=== PATIENT | female | born 1995 | race Two or more races ===

== ENCOUNTER 2024-03-09 11:54 | Outpatient (AMB) | payer OTHER, SELFPAY ==
--- NOTE | 2024-03-09 12:02 | A.OFFPC_ITS ---
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 Retail Loan Officer Required: No Accompanied by: Self / Same As Patient Allergies NSAIDS (Non-Steroidal Anti-Inflamma Allergy (Severe, Verified 03/09/24 12:28) Swelling dipyrone Adverse Reaction (Intermediate, Verified 03/09/24 12:28) Hives Medication List - Last Reconciled 03/09/24 by Kellen Cooper, [facility]- drospirenone-ethinyl estradiol 3-0.03 mg (Ayde) 1 tab PO DAILY Tobacco use date assessed: 03/09/24 Dental Screening Dental Screen Date: 03/09/24 Did you have a dental visit in the last 12 months?: Yes Did you have a dental problem in the last 6 months where you did not have access to dental care?: No Was dental information given to patient?: Patient has dentist HPI HPI Comments History of Present Illness Details 28 y/o F with no known medical history Here today to see me with no medical records Grisel chief complaint feeling dizzy, weak, low blood pressure with 1 syncopal event. Reports about 9 months ago she had food poisoning and then 24 hours later went to the beach. All leaving the beach her vision went black and she fainted. She did not seek any healthcare at that time. About 1 year ago she went to [place] to visit her parents. The temperature was very hot. She also felt dizzy, weak, faint. She did not syncopized. About 3 months ago while at the gym she checked her blood pressure and noted it to be low. In the car while driving with her she feels sick, dizzy and nauseous. Denies heavy periods, chance of , recent surgery, syncope, chest pain, shortness for breath. Reports occasional headaches. [facility] Medical History (Updated 03/09/24 @ 13:59 by Kellen Cooper, [facility]) Kidney stones IBS (irritable bowel syndrome) Surgical History (Updated 03/09/24 @ 12:12 by SIDDHARTH Arceo) Hx of appendectomy Family History (Updated 03/09/24 @ 12:12 by SIDDHARTH Arceo) Other Diabetes High cholesterol Social History Housing: Apartment Patient Tobacco Use Status: Never used Tobacco e-Cigarette/Vaping Use: Never Used service: No Current occupational status: unemployed Cognitive needs: No Hearing needs: No Vision needs: Yes Questionnaire PHQ-9 Over the last 2 weeks, how often have you been bothered by any of the following problems? 1. Little interest or pleasure in doing things: not at all 2. Feeling down, depressed, or hopeless: not at all 3. Trouble falling or staying asleep, or sleeping too much: not at all 4. Feeling tired or having little energy: not at all 5. Poor appetite or overeating: not at all 6. Feeling bad about yourself - or that you are a failure or have let yourself or your family down: not at all 7. Trouble concentrating on things, such as reading the newspaper or watching television: not at all 8. Moving or speaking so slowly that other people could have noticed. Or the opposite - being so fidgety or restless that you have been moving around a lot more than usual: not at all 9. Thoughts that you would be better off or of hurting yourself in some way: not at all Total score: 0 Depression Screening Interpretation: Negative Depression Screening Done: Yes 14061 - PHQ-9 Billing: Yes Source: Developed by Drs. Alen White, Corine Munoz, Ady Manriquez and colleagues, with an educational darian from [employer]. Thrive Questionnaire Date Thrive assessed: 03/09/24 I am a: Patient What is your living situation today?: I have a steady place to live Within the past 12 months, did the food you bought not last and you didn't have the money to get more?: Never true Within the past 12 months, did you worry whether your food would run out before you got money to buy more?: Never true Do you have trouble paying for medicines?: No Do you have trouble getting transportation to medical appointments?: No Do you have trouble paying your heating and electricity bill?: No Do you have trouble taking care of your child, family member or friend?: No Do you have trouble with day-to-day activities such as bathing, preparing meals, shopping, managing finances, etc.?: No Are you currently unemployed and looking for a job?: Yes Are you interested in more education?: No Please select the resources that you would like help with: Job search/training Currently or been in a relationship where the following occur: no concerns reported THRIVE Score: 0 AUDIT C Alcohol Use Questionnaire (AUDIT-C) 1. How often do you have a drink containing alcohol?: Monthly or less 2. How many drinks containing alcohol do you have on a typical day when you are drinking?: 1 or 2 3. How often do you have six or more drinks on one occasion?: Never Total Score: 1 Score Reviewed/Action Taken: Yes RACHEL-7 AMB Questionnaire RACHEL-7 Date RACHEL - 7 assessed: 03/09/24 Feeling nervous, anxious, or on edge: 0 = Not at all Not being able to stop or control worryin = Not at all Worrying too much about different things: 0 = Not at all Trouble relaxin = Not at all Being so restless that it is hard to sit still: 0 = Not at all Becoming easily annoyed or irritable: 0 = Not at all Feeling afraid as if something awful might happen: 0 = Not at all Total RACHEL-7 score (0-4 normal; 5-9 mild; 10-14 moderate; 15-21 severe): 0 Source: Developed by Drs. Alen White, Corine Munoz, Ady Manriquez and colleagues, with an educational darian from [employer]. RACHEL-7 Assessment Billing RACHEL-7 Assessment Tool: RACHEL-7 Assessment 21697 Review of Systems Const All systems reviewed & are unremarkable except as noted in HPI and below Physical exam (Primary Care) Vital Signs: Last Vital Signs Temp 97.4 F 03/09/24 12:03 Pulse 107 H 03/09/24 12:03 Resp 14 03/09/24 12:03 BP 110/66 03/09/24 12:03 Pulse Ox 99 03/09/24 12:03 Oxygen Delivery Method Room Air 03/09/24 12:03 BMI result Body Mass Index 25.7 Tobacco/Smoking Status: Tobacco use Status Tobacco use date assessed 03/09/24 03/09/24 12:14 Patient Tobacco Use Status Never used Tobacco 03/09/24 12:14 e-Cigarette/Vaping Use Never Used 03/09/24 12:14 PHQ-9: PHQ-9 Score PHQ-9: Total score 0 03/09/24 12:28 Depression Screening Interpretation: Negative Thrive Assessment: Date of Thrive Assessment Date Thrive assessed 03/09/24 03/09/24 12:14 Currently or been in a relationship where the following occur: no concerns reported Const Other: Awake alert oriented Head atraumatic PERRLA, EOMI, no nystagmus Tachycardic, regular rhythm [place] dizzy from sitting to standing. [place] best while lying flat. Mildly diaphoretic with position changes. Denied any visual changes. Lung sounds clear to auscultation bilat Skin pink warm and dry. Assessment and Plan Assessment & Plan (1) Orthostasis: Comment: Positive orthostasis today. Advised to hydrate liberally with 3 L of water, increase sodium intake. Slow position changes. Stat labs today. Return to office next week to follow up. If syncope or collapse were to recur seek medical care immediately. Code(s): I95.1 - Orthostatic hypotension Plan Of note while getting blood drawn she became presyncopal, diaphoretic. Did require medical attention. She was able to leave on her own accompanied by her without further incident. This note is constructed using voice recognition software. While every effort has been made to ensure accuracy in creative perfumer, still errors may have been included Sometimes, these errors may affect the content or meaning of the given sentence . Total time spent caring for the patient today was 50 minutes. This includes time spent before the visit reviewing the chart, time spent during the visit, and time spent after the visit on documentation Orders: Orders Complete Blood Count Man Dif Today I95.1 - Orthostatic hypotension TSH reflex Free T4 Today I95.1 - Orthostatic hypotension Magnesium Today I95.1 - Orthostatic hypotension IRON PROFILE Today I95.1 - Orthostatic hypotension Hemoglobin A1c Today I95.1 - Orthostatic hypotension Comprehensive Met. Panel Today I95.1 - Orthostatic hypotension Vitamin B12 Today I95.1 - Orthostatic hypotension Phosphorus Today I95.1 - Orthostatic hypotension Patient Instructions: Return to office in 1 week to follow up on your labs and orthostatic symptoms. Coding Level of Care Code New Pt Level 5 (44051) Diagnoses Orthostasis I95.1 Additional Codes RACHEL-7 Assessment Billing - RACHEL-7 Assessment Tool: RACHEL-7 Assessment 55740 ([id number])
[2024-03-09 12:03] VITALS: BP 110/66; PULSE 107; RESP 14; TEMP 36.3; O2SAT 99; BMI 25.7
[2024-03-09 13:54] VITALS: BP 100/76; PULSE 95
[2024-03-09 13:55] VITALS: BP 110/84; BP 84/0; PULSE 107; PULSE 117
== END 2024-03-09 12:54 | disposition home or self-care (01) ==
PROVIDERS: Visit Provider Nurse Practitioner Family
DX: I95.1 Orthostatic hypotension (principal)
CPT/HCPCS: 99204

== ENCOUNTER 2024-03-09 12:40 | Outpatient (REF) | payer OTHER, SELFPAY ==
[2024-03-09 15:12] LABS: Baso%MD 0.4 %; Eos%MD 0.4 %; Hematocrit 36.8 % (37.0-47.0); Hemoglobin 12.6 g/dl (12.0-16.0); IG%MD 0.4 %; Lymph%MD 26.9 %; Mean Corpuscular HGB Conc 34.2 g/dl (31.0-35.0); Mean Corpuscular Hemoglobin 29.5 pg (27.0-33.0); Mean Corpuscular Volume 86.2 fL (80.0-98.0); Mean Platelet Volume 10.6 fL (9.4-12.3); Mono%MD 6.3 %; Neut%MD 65.6 %; Platelet Count 298 X10*3/uL (160-400); Red Blood Count 4.27 X10*6/uL (4.20-5.50); Red Cell Distribution Width 13.1 % (11.0-16.0); White Blood Count 5.7 X10*3/uL (4.8-10.8)
[2024-03-09 17:47] LABS: Alanine Aminotransferase 16 U/L (0-31); Albumin Level 3.9 g/dL (3.5-5.0); Alkaline Phosphatase 59 U/L (39-117); Anion Gap 14 (12-20); Aspartate Amino Transferase 17 U/L (5-31); Bilirubin Total 0.2 mg/dL (0.0-1.0); Blood Urea Nitrogen 14 mg/dL (9-16); Calcium 9.6 mg/dL (8.4-10.2); Carbon Dioxide 20 mmol/L (22-29); Chloride 107 mmol/L (96-108); Estimated Average Glucose 100 mg/dL; Estimated Glomerular Filt Rate > 60; Glucose Random 91 mg/dL (60-115); Hemoglobin A1c % 5.1 % (<6.0); Iron 97 mcg/dL (30-160); Magnesium 1.9 mg/dL (1.6-2.6); Percent Iron Saturation 28 % (15-50); Potassium 4.2 mmol/L (3.3-5.1); Sodium 137 mmol/L (135-145); Total Iron Binding Capacity 346 mcg/dL (228-428); Unsaturated Iron Binding 249 ug/dL; Vitamin B12 277 pg/mL (200-900)
[2024-03-09 17:48] LABS: TSH reflex Free T4 1.83 uIU/mL (0.32-4.0)
[2024-03-09 18:50] LABS: Band Neutrophils Percent 0 % (3-5); Basophils Abs Manual 0.1 X10*3/uL (0.0-0.2); Basophils Percent Manual 1 % (0-2); Lymphocytes Absolute Manual 1.2 X10*3/uL (1.2-4.9); Lymphocytes Percent Manual 21 % (20-40); Monocytes Absolute Manual 0.3 X10*3/uL (0.1-1.2); Monocytes Percent Manual 5 % (2-11); Neutrophils Absolute Manual 4.2 X10*3/uL (2.0-8.3); Neutrophils Percent Manual 73 % (45-73); Platelet Estimate NORMAL (NORMAL); Platelet Morphology Comment NORMAL; RBC Morphology NORMAL
== END 2024-03-09 12:41 | disposition home or self-care (01) ==
LOC: HO.WFDLDS 12:40
PROVIDERS: Visit Provider Nurse Practitioner Family
DX: I95.1 Orthostatic hypotension (principal)
CPT/HCPCS: 36415; 80053; 82607; 83036; 83540; 83735; 84100; 84443; 85007; 85027

== ENCOUNTER 2024-03-30 11:26 | Outpatient (AMB) | payer OTHER, SELFPAY ==
--- NOTE | 2024-03-30 11:56 | A.OFFPC_ITS ---
Vital Signs 03/30/24 11:57 03/30/24 12:06 03/30/24 12:14 03/30/24 12:17 03/30/24 12:19 Height 5 ft 1 in 5 ft 1 in Weight 138 lb 8 oz BMI 26.2 BP 102/66 100/76 98/70 96/68 Blood Pressure Location Rt brachial Lt brachial Lt brachial Lt brachial Position Sitting Supine Sitting Standing Respiration 14 Pulse 68 Pulse Source Pulse Oximeter Temp 97.8 F Temp Source Temporal Artery Scan Pulse Oximetry (%) 99 Oxygen Delivery Method Room Air Intake Visit Reasons: 1 week 30 min fu orthostasis and labs Risk Specialist Required: No Accompanied by: Self / Same As Patient Allergies NSAIDS (Non-Steroidal Anti-Inflamma Allergy (Severe, Verified 03/30/24 12:12) Swelling dipyrone Adverse Reaction (Intermediate, Verified 03/30/24 12:12) Hives Medication List - Last Reconciled 03/30/24 by Kellen Cooper, [employer] INGREDIENT LOGISTICS SPECIALIST-BC drospirenone-ethinyl estradiol 3-0.03 mg (Ayde) 1 tab PO DAILY Tobacco use date assessed: 03/09/24 Dental Screening Dental Screen Date: 03/09/24 HPI HPI Comments History of Present Illness Details 28 y/o F with no previous medical histor y Here today to f/u on orthostasis The below labs were reviewed w/ her today Labs from 03/09/2024 low hematocrit 36.8, bands 0%, normal lytes, normal renal function, A1c 5.1%, normal Mag and phos, normal iron studies, normal B12, normal TSH Since last visit, she has been Drinking more water, eating more Na+ and overall feeling much better While away on vacation recently, also felt well, she was walking a lot and felt fine however when she returned, her sx returned to include weakness, nausea. No syncope. Admits decreased h20 intake She does endorse a hx of anemia in the past requiring po Iron. Though her labs are not significant her Hct is low and all of her levels are borderline. She admits some nausea in the AM upon waking that clears by 11am. Otherwise denies constitutional sx. [facility] Medical History Kidney stones IBS (irritable bowel syndrome) Surgical History Hx of appendectomy Family History Other Diabetes High cholesterol Social History Housing: Apartment Patient Tobacco Use Status: Never used Tobacco e-Cigarette/Vaping Use: Never Used service: No Current occupational status: unemployed Cognitive needs: No Hearing needs: No Vision needs: Yes Questionnaire Thrive Questionnaire Date Thrive assessed: 03/09/24 RACHEL-7 AMB Questionnaire RACHEL-7 Date RACHEL - 7 assessed: 03/09/24 Source: Developed by Drs. Alen White, Corine Munoz, Ady Manriquez and colleagues, with an educational darian from [employer]. Review of Systems Const All systems reviewed & are unremarkable except as noted in HPI and below Physical exam (Primary Care) Vital Signs: Last Vital Signs Temp 97.8 F 03/30/24 12:06 Pulse 68 03/30/24 12:06 Resp 14 03/30/24 12:06 BP 96/68 03/30/24 12:19 Pulse Ox 99 03/30/24 12:06 Oxygen Delivery Method Room Air 03/30/24 12:06 BMI result Body Mass Index 26.2 Tobacco/Smoking Status: Tobacco use Status Tobacco use date assessed 03/09/24 03/30/24 11:57 Patient Tobacco Use Status Never used Tobacco 03/30/24 11:57 e-Cigarette/Vaping Use Never Used 03/30/24 11:57 Thrive Assessment: Date of Thrive Assessment Date Thrive assessed 03/09/24 03/30/24 11:57 Const Other: Awake alert oriented Head atraumatic PERRLA, EOMI, no nystagmus RRR [place] dizzy from sitting to standing. Lung sounds clear to auscultation bilat Skin pink warm and dry. Assessment and Plan Assessment & Plan (1) Orthostasis: Comment: Positive orthostasis today. Advised to hydrate liberally with 3 L of water, increase sodium intake. Slow position changes. If syncope or collapse were to recur seek medical care immediately. Code(s): I95.1 - Orthostatic hypotension (2) Anemia: Code(s): D64.9 - Anemia, unspecified Qualifiers: Anemia type: unspecified type Qualified Code(s): D64.9 - Anemia, unspecified (3) Nausea: Code(s): R11.0 - Nausea Plan: Total time spent caring for the patient today was 30 minutes. This includes time spent before the visit reviewing the chart, time spent during the visit, and time spent after the visit on documentation This note is constructed using voice recognition software. While every effort has been made to ensure accuracy in scarf and anneal operator, still errors may have been included Sometimes, these errors may affect the content or meaning of the given sentence . Plan She cont w sx however much improved since last visit. The plan will be to give her NaCL tabs to take BID w/ at least 4 oz of H20. She can cont to liberally salt food during the day to control the AM nausea, will trial pepcid at HS In addition to drinking 3L of h20 during the day, i will start her on Iron. Advised to titrate to control GI sx. Cont slow position changes RTO in about 4 weeks w/ repeat labs prior. Orders: Orders IRON PROFILE 05/09/24 I95.1 - Orthostatic hypotension LDL Cholesterol Direct 05/09/24 I95.1 - Orthostatic hypotension Absolute Neutrophil Count 05/09/24 I95.1 - Orthostatic hypotension Complete Blood Count Man Dif 05/09/24 I95.1 - Orthostatic hypotension Medications: New ferrous sulfate take daily at noon, adjust for stomach upset. 325 mg PO DAILY 90 tabs 0RF sodium chloride take with at least 4 oz of water twice per day 1,000 mg PO BID 180 tabs 0RF famotidine (Pepcid) 40 mg PO BEDTIME 90 tabs 0RF Patient Instructions: She cont w sx however much improved since last visit. The plan will be to give her NaCL tabs to take BID w/ at least 4 oz of H20. She can cont to liberally salt food during the day to control the AM nausea, will trial pepcid at HS In addition to drinking 3L of h20 during the day, i will start her on Iron. Advised to titrate to control GI sx. Cont slow position changes RTO in about 4 weeks w/ repeat labs prior. Coding Level of Care Code Est Pt Level 4 (58265) Diagnoses Orthostasis I95.1 Anemia, unspecified type D64.9 Anemia type: unspecified type Nausea R11.0
[2024-03-30 12:06] VITALS: BP 102/66; PULSE 68; RESP 14; TEMP 36.6; O2SAT 99; BMI 26.2
[2024-03-30 12:14] VITALS: BP 100/76
[2024-03-30 12:17] VITALS: BP 98/70
[2024-03-30 12:19] VITALS: BP 96/68
== END 2024-03-30 12:42 | disposition home or self-care (01) ==
PROVIDERS: PCP Nurse Practitioner Family; Visit Provider Nurse Practitioner Family
DX: I95.1 Orthostatic hypotension (principal); D64.9 Anemia, unspecified; R11.0 Nausea
CPT/HCPCS: 99214

== ENCOUNTER 2024-05-04 11:21 | Outpatient (REF) | payer OTHER, SELFPAY ==
[2024-05-04 14:07] LABS: Baso%MD 0.4 %; Eos%MD 0.8 %; Hematocrit 34.8 % (37.0-47.0); IG%MD 0.4 %; Lymph%MD 26.7 %; Mean Corpuscular HGB Conc 34.5 g/dl (31.0-35.0); Mean Corpuscular Hemoglobin 29.6 pg (27.0-33.0); Mean Corpuscular Volume 85.9 fL (80.0-98.0); Mean Platelet Volume 10.5 fL (9.4-12.3); Neut%MD 65.7 %; Platelet Count 281 X10*3/uL (160-400); Red Blood Count 4.05 X10*6/uL (4.20-5.50); Red Cell Distribution Width 12.7 % (11.0-16.0); White Blood Count 5.2 X10*3/uL (4.8-10.8)
[2024-05-04 14:28] LABS: Iron 105 mcg/dL (30-160); Percent Iron Saturation 35 % (15-50); Total Iron Binding Capacity 303 mcg/dL (228-428); Unsaturated Iron Binding 198 ug/dL
[2024-05-04 14:46] LABS: Band Neutrophils Percent 1 % (3-5); Eosinophils Absolute Manual 0.1 X10*3/uL (0.0-0.4); Eosinophils Percent Manual 1 % (0-4); Lymphocytes Absolute Manual 1.1 X10*3/uL (1.2-4.9); Lymphocytes Percent Manual 21 % (20-40); Monocytes Absolute Manual 0.4 X10*3/uL (0.1-1.2); Monocytes Percent Manual 7 % (2-11); Neutrophils Absolute Manual 3.7 X10*3/uL (2.0-8.3); Neutrophils Percent Manual 70 % (45-73)
[2024-05-04 14:47] LABS: Platelet Estimate NORMAL (NORMAL); Platelet Morphology Comment NORMAL; RBC Morphology NORMAL
[2024-05-06 00:09] LABS: LDL Cholesterol Direct 84 mg/dL (<100)
== END 2024-05-04 11:22 | disposition home or self-care (01) ==
LOC: HO.WFDLDS 11:21
PROVIDERS: Visit Provider Nurse Practitioner Family
DX: I95.1 Orthostatic hypotension (principal)
CPT/HCPCS: 36415; 83540; 83721; 85007; 85027

== ENCOUNTER 2024-05-11 12:27 | Outpatient (AMB) | payer OTHER, SELFPAY ==
--- NOTE | 2024-05-11 12:29 | MHC.PC.OV ---
Vital Signs 05/11/24 12:39 05/11/24 12:40 05/11/24 12:40 Height 5 ft 1 in Weight 139 lb 7 oz BMI 26.3 BP 104/62 102/70 100/68 Blood Pressure Location Lt brachial Lt brachial Lt brachial Position Supine Sitting Standing Respiration 16 Pulse 78 Pulse Source Pulse Oximeter Temp 98.3 F Temp Source Oral Pulse Oximetry (%) 100 Oxygen Delivery Method Room Air Intake Visit Reasons: 30 min end of April orthostasis, Anemia Intake Note: patient here for follow up on orthostasis and anemia. Agriculture Specialist Required: No Is last menstrual period known: Yes Last menstrual period: 05/12/24 Post menopausal: No Patient : No Allergies NSAIDS (Non-Steroidal Anti-Inflamma Allergy (Severe, Verified 05/11/24 12:32) Swelling dipyrone Adverse Reaction (Intermediate, Verified 05/11/24 12:32) Hives Medication List - Last Reconciled 05/11/24 by Kellen Cooper, MANAGER IT SECURITY- drospirenone-ethinyl estradiol 3-0.03 mg (Ayde) 1 tab PO DAILY famotidine (Pepcid) 40 mg PO BEDTIME ferrous sulfate 325 mg PO DAILY sodium chloride 1,000 mg PO BID Tobacco use date assessed: 03/09/24 Dental Screening Dental Screen Date: 03/09/24 HPI HPI Comments History of Present Illness Details 28 y/o F with iron def anemia and orthostatic hypotension Here today for a month f/u. Since the last office visit, she is feeling great. States she has not had any additional orthostatic symptoms or episodes, she has even sleeping better. She can not believe how well she feels. She does endorse a few occasional headaches however relates these directly to her glasses and not related to her orthostasis. She has been taking the Pepcid every night. Reports that she no longer has any nausea. She wakes in the morning feeling hungry and is able to eat normally. She is taking the iron 3 times per week as taking more frequent caused GI upset. She does plan to continue to titrate as tolerated. In regards to the salt tablets, she reports that she does not like them, however is using them a few times per week with positive effect. She continues to liberally salt her food and hydrate well. repeat CBC 05/04/24 shows mild drop in RBC, HCT & lymphocytes, increase in bands to 1, normal plt and rbc morphology Exam: Awake alert oriented Head atraumatic PERRLA, EOMI, no nystagmus, no conjunctival pallor RRR Lung sounds clear to auscultation bilat Skin pink warm and dry. Plan As she is feeling well, continue with the current plan NaCL tabs to take BID w/ at least 4 oz of H20. She can cont to liberally salt food during the day to control the AM nausea, pepcid at HS In addition to drinking 3L of h20 during the day, cont on Iron. Advised to titrate to control GI sx. Cont slow position changes RTO in about nov w/ repeat labs prior, sooner PRN This note is constructed using voice recognition software. While every effort has been made to ensure accuracy in printed circuit boards router, still errors may have been included Sometimes, these errors may affect the content or meaning of the given sentence . Total time spent caring for the patient today was 30 minutes. This includes time spent before the visit reviewing the chart, time spent during the visit, and time spent after the visit on documentation [facility] Medical History Kidney stones IBS (irritable bowel syndrome) Surgical History Hx of appendectomy Family History Other Diabetes High cholesterol Social History Housing: Apartment Patient Tobacco Use Status: Never used Tobacco e-Cigarette/Vaping Use: Never Used service: No Current occupational status: unemployed Cognitive needs: No Hearing needs: No Vision needs: Yes Female Reproductive History Menstrual Date of last menstrual period: 05/12/24 Questionnaire Thrive Questionnaire Date Thrive assessed: 03/09/24 RACHEL-7 AMB Questionnaire RACHEL-7 Date RACHEL - 7 assessed: 03/09/24 Source: Developed by Drs. Alen White, Corine Munoz, Ady Manriquez and colleagues, with an educational darian from [facility]. Physical exam (Primary Care) Vital Signs: Last Vital Signs Temp 98.3 F 05/11/24 12:39 Pulse 78 05/11/24 12:39 Resp 16 05/11/24 12:39 BP 100/68 05/11/24 12:40 Pulse Ox 100 05/11/24 12:39 Oxygen Delivery Method Room Air 05/11/24 12:39 BMI result Body Mass Index 26.3 Tobacco/Smoking Status: Tobacco use Status Tobacco use date assessed 03/09/24 05/11/24 12:31 Patient Tobacco Use Status Never used Tobacco 05/11/24 12:31 e-Cigarette/Vaping Use Never Used 05/11/24 12:31 Thrive Assessment: Date of Thrive Assessment Date Thrive assessed 03/09/24 05/11/24 12:31 Assessment and Plan Assessment & Plan (1) Orthostasis: Comment: Advised to hydrate liberally with 3 L of water, increase sodium intake. Slow position changes. If syncope or collapse were to recur seek medical care immediately. Code(s): I95.1 - Orthostatic hypotension (2) Anemia: Code(s): D64.9 - Anemia, unspecified Qualifiers: Anemia type: unspecified type Qualified Code(s): D64.9 - Anemia, unspecified Orders: Orders IRON PROFILE 07/19/24 D64.9 - Anemia, unspecified, I95.1 - Orthostatic hypotension Ferritin 07/19/24 D64.9 - Anemia, unspecified, I95.1 - Orthostatic hypotension Complete Blood Count no Diff 07/19/24 D64.9 - Anemia, unspecified, I95.1 - Orthostatic hypotension Comprehensive Met. Panel 07/19/24 D64.9 - Anemia, unspecified, I95.1 - Orthostatic hypotension Medications: Refilled ferrous sulfate take daily at noon, adjust for stomach upset. 325 mg PO DAILY 90 tabs 1RF famotidine (Pepcid) 40 mg PO BEDTIME 90 tabs 1RF Coding Level of Care Code Est Pt Level 4 (86086) Diagnoses Orthostasis I95.1 Anemia, unspecified type D64.9 Anemia type: unspecified type
[2024-05-11 12:39] VITALS: BP 104/62; PULSE 78; RESP 16; TEMP 36.8; O2SAT 100; BMI 26.3
[2024-05-11 12:40] VITALS: BP 100/68; BP 102/70
== END 2024-05-11 13:16 | disposition home or self-care (01) ==
PROVIDERS: PCP Nurse Practitioner Family; Visit Provider Nurse Practitioner Family
DX: I95.1 Orthostatic hypotension (principal); D64.9 Anemia, unspecified
CPT/HCPCS: 99214

== ENCOUNTER 2024-08-30 12:02 | Outpatient (REF) | payer OTHER, SELFPAY ==
[2024-08-30 14:25] LABS: Hematocrit 36.9 % (37.0-47.0); Hemoglobin 12.6 g/dl (12.0-16.0); Mean Corpuscular HGB Conc 34.1 g/dl (31.0-35.0); Mean Corpuscular Hemoglobin 29.9 pg (27.0-33.0); Mean Corpuscular Volume 87.4 fL (80.0-98.0); Mean Platelet Volume 11.1 fL (9.4-12.3); Neut%MD 60.5 %; Neutrophils Absolute Auto 3.4 x10*3/uL (2.0-8.3); Platelet Count 264 X10*3/uL (160-400); Red Blood Count 4.22 X10*6/uL (4.20-5.50); Red Cell Distribution Width 12.9 % (11.0-16.0); WBCANC 5.6 X10*3/uL; White Blood Count 5.6 X10*3/uL (4.8-10.8)
[2024-08-30 15:08] LABS: Alanine Aminotransferase 17 U/L (0-31); Albumin Level 3.8 g/dL (3.5-5.0); Alkaline Phosphatase 52 U/L (39-117); Anion Gap 13 (12-20); Aspartate Amino Transferase 22 U/L (5-31); Bilirubin Total 0.3 mg/dL (0.0-1.0); Blood Urea Nitrogen 14 mg/dL (9-16); Calcium 9.6 mg/dL (8.4-10.2); Carbon Dioxide 24 mmol/L (22-29); Chloride 106 mmol/L (96-108); Estimated Glomerular Filt Rate > 60; Ferritin 149 ng/mL (10-122); Glucose Random 90 mg/dL (60-115); Iron 71 mcg/dL (30-160); Percent Iron Saturation 22 % (15-50); Potassium 4.1 mmol/L (3.3-5.1); Sodium 139 mmol/L (135-145); Total Iron Binding Capacity 317 mcg/dL (228-428); Total Protein 7.7 g/dL (6.5-8.0); Unsaturated Iron Binding 246 ug/dL
== END 2024-08-30 12:03 | disposition home or self-care (01) ==
LOC: HO.WFDLDS 12:02
PROVIDERS: Visit Provider Nurse Practitioner Family
DX: I95.1 Orthostatic hypotension (principal); D64.9 Anemia, unspecified
CPT/HCPCS: 36415; 80053; 82728; 83540; 85027

== ENCOUNTER 2024-09-06 13:03 | Outpatient (AMB) | payer OTHER, SELFPAY ==
--- NOTE | 2024-09-06 13:09 | A.OFFPC_ITS ---
Vital Signs 09/06/24 13:12 Height 5 ft 1 in Weight 143 lb 4 oz BMI 27.1 BP 111/58 L Blood Pressure Location Rt brachial Position Sitting Respiration 12 Pulse 94 Pulse Source Pulse Oximeter Pulse Oximetry (%) 97 Oxygen Delivery Method Room Air Intake Visit Reasons: fu anemia, orthostasis Intake Note: follow up Handle Bender Required: No Allergies NSAIDS (Non-Steroidal Anti-Inflamma Allergy (Severe, Verified 09/06/24 13:21) Swelling dipyrone Adverse Reaction (Intermediate, Verified 09/06/24 13:21) Hives Medication List - Last Reconciled 09/06/24 by Kellen Cooper, [employer]- drospirenone-ethinyl estradiol 3-0.03 mg (Ayde) 1 tab PO DAILY famotidine (Pepcid) 40 mg PO BEDTIME ferrous sulfate 325 mg PO DAILY sodium chloride 1,000 mg PO BID Tobacco use date assessed: 03/09/24 Dental Screening Dental Screen Date: 03/09/24 HPI HPI Comments History of Present Illness Details The patient is a 29-year-old female presenting with a follow-up visit for anemia management and evaluation of worsening menstrual cramps. She initially presented with iron deficiency anemia, for which she has been on oral iron supplementation. She reports improvement in symptoms since starting the treatment, but experiences recurrent weakness if she does not take her iron pills at least three times a week. Despite normal iron levels now, she has started noticing increasing menstrual cramps over the past three months. These cramps coincide with her menstrual cycle, beginning days before it starts and persisting for an extended period. She describes the pain as severe enough to immobilize her for a week during her cycle. Previously, her cramps were mild due to oral contraceptive use, but they have worsened despite continued use. She also notes new onset constipation, likely exacerbated by the iron supplementation. The patient's family history includes ovarian cancer in both her paternal aunt and grandmother, with her aunt being diagnosed post-40 years of age. She has expressed concern over the family cancer history and its relation to her worsening symptoms. Current treatment for her constipation-related cramps includes Midol, and she strictly avoids NSAIDs due to her allergy. She mentions no new allergies or shortness of breath. Her last Pap smear was performed in 2021, and she has not seen an ACCESS LIAISON recently but is considering a referral to evaluate her symptoms. Social History - Actively attempts weight management; i ncorporates exercise regularly. - Follows balanced nutritional habits, y et notes recent unexplained weight gain possibly linked to reduced menstrual flow and cramps. - Past experience with ovarian cysts as a teenager. - No tobacco, alcohol, or substance abus e reported. - Housing and employment details were no t discussed. Review of Systems - Gastrointestinal: Reports constipation . - Genitourinary: Reports severe menstrua l cramps and light menstrual flow over the past three months. - Neurological: Denies dizziness. - Cardiovascular: Denies shortness of br eath. Physical Exam Awake alert NAD No conjunctival pallor RRR Abdominal normoactive BS x4, Generalized tenderness noted, most pronounced in the lower abdomen, without focal point. LS CTAB, dim throughout Results Labs from 08/30/2024 show hematocrit mildly low at 36.9, otherwise normal CBC, normal iron profile, elevated ferritin at 149, normal lytes, normal renal function, normal random glucose, normal LFTs Plan - Iron Deficiency Anemia: Continue curre nt regimen of iron supplementation. Orthostasis cont salt intake, increased fluids and slow position changes - Dysmenorrhea: Referral to an ACCESS LIAISON is initiated to explore underlying causes for severe cramps. An ultrasound, including both pelvic and transvaginal views, is ordered to investigate potential pelvic pathologies. Wt gain likely related to eating more now that she is not nauseas. Cont pepcid. If wt gain cont, will need to eval. - Constipation: Recommendation to consid er dietary adjustments to mitigate constipation from iron intake. - Family History of Cancer: A pelvic ult rasound is prioritized, considering family history of ovarian and abdominal cancers. - Follow-up: Schedule follow-up to [facility] ultrasound results, with the option for a phone consultation. Will need to order repeat future labs after review of US results. Patient was informed and verbally consented to the use of an ambient scribe for clinic note documentation during this visit. Discussion Notes During the visit, I reaffirmed the importance of maintaining her current iron supplement regimen. We discussed the potential implications of her family history in relation to her symptoms. I offered reassurance regarding the benign nature of her current lab results but emphasized the need for further evaluation of her menstrual cramps and abdominal discomfort via ultrasound. The referral to an ACCESS LIAISON was explained in detail, and I outlined the expected timeframe for imaging and follow-up. I reviewed the procedure and expected results and offered a consultation to discuss findings. The patient was informed of the importance of continuous symptom monitoring, with a clear plan to provide timely follow-up and any necessary adjustment to her treatment. Total time spent caring for the patient today was 30 minutes. This includes time spent before the visit reviewing the chart, time spent during the visit, and time spent after the visit on documentation [employer] Medical History Kidney stones IBS (irritable bowel syndrome) Surgical History Hx of appendectomy Family History Other Diabetes High cholesterol Social History Housing: Apartment Patient Tobacco Use Status: Never used Tobacco e-Cigarette/Vaping Use: Never Used service: No Current occupational status: unemployed Cognitive needs: No Hearing needs: No Vision needs: Yes Questionnaire PHQ-9 Over the last 2 weeks, how often have you been bothered by any of the following problems? 1. Little interest or pleasure in doing things: not at all 2. Feeling down, depressed, or hopeless: not at all 3. Trouble falling or staying asleep, or sleeping too much: not at all 4. Feeling tired or having little energy: not at all 5. Poor appetite or overeating: not at all 6. Feeling bad about yourself - or that you are a failure or have let yourself or your family down: not at all 7. Trouble concentrating on things, such as reading the newspaper or watching television: not at all 8. Moving or speaking so slowly that other people could have noticed. Or the opposite - being so fidgety or restless that you have been moving around a lot more than usual: not at all 9. Thoughts that you would be better off or of hurting yourself in some way: not at all Total score: 0 16251 - PHQ-9 Billing: Yes Source: Developed by Drs. Alen L. Corine White Kurt Kroenke and colleagues, with an educational darian from [employer]. Thrive Questionnaire Date Thrive assessed: 09/06/24 I am a: Patient What is your living situation today?: I have a steady place to live Within the past 12 months, did the food you bought not last and you didn't have the money to get more?: Never true Within the past 12 months, did you worry whether your food would run out before you got money to buy more?: Never true Do you have trouble paying for medicines?: No Do you have trouble getting transportation to medical appointments?: No Do you have trouble paying your heating and electricity bill?: No Do you have trouble taking care of your child, family member or friend?: No Do you have trouble with day-to-day activities such as bathing, preparing meals, shopping, managing finances, etc.?: No Are you currently unemployed and looking for a job?: Yes Are you interested in more education?: No Please select the resources that you would like help with: None Currently or been in a relationship where the following occur: No concerns reported THRIVE Score: 0 AUDIT C Alcohol Use Questionnaire (AUDIT-C) 1. How often do you have a drink containing alcohol?: Monthly or less 2. How many drinks containing alcohol do you have on a typical day when you are drinking?: 1 or 2 3. How often do you have six or more drinks on one occasion?: Never Total Score: 1 RACHEL-7 AMB Questionnaire RACHEL-7 Date RACHEL - 7 assessed: 09/06/24 Feeling nervous, anxious, or on edge: 0 = Not at all Not being able to stop or control worryin = Not at all Worrying too much about different things: 0 = Not at all Trouble relaxin = Not at all Being so restless that it is hard to sit still: 0 = Not at all Becoming easily annoyed or irritable: 0 = Not at all Feeling afraid as if something awful might happen: 0 = Not at all Total RACHEL-7 score (0-4 normal; 5-9 mild; 10-14 moderate; 15-21 severe): 0 Source: Developed by Corine Freitas Kurt Kroenke and colleagues, with an educational darian from [employer]. RACHEL-7 Assessment Billing RACHEL-7 Assessment Tool: RACHEL-7 Assessment 47121 Physical exam (Primary Care) Vital Signs: Last Vital Signs Pulse 94 09/06/24 13:12 Resp 12 09/06/24 13:12 BP 111/58 L 09/06/24 13:12 Pulse Ox 97 09/06/24 13:12 Oxygen Delivery Method Room Air 09/06/24 13:12 BMI result Body Mass Index 27.1 Tobacco/Smoking Status: Tobacco use Status Tobacco use date assessed 03/09/24 09/06/24 13:11 Patient Tobacco Use Status Never used Tobacco 09/06/24 13:11 e-Cigarette/Vaping Use Never Used 09/06/24 13:11 PHQ-9: PHQ-9 Score PHQ-9: Total score 0 09/06/24 13:11 Thrive Assessment: Date of Thrive Assessment Date Thrive assessed 09/06/24 09/06/24 13:11 Currently or been in a relationship where the following occur: No concerns reported Coding Level of Care Code Est Pt Level 4 (94257) Complex EM visit Add On G2211 Diagnoses Anemia, unspecified type D64.9 Anemia type: unspecified type Dysmenorrhea N94.6 Family history of ovarian cancer Z80.41 Orthostasis I95.1 Weight gain R63.5 Nausea R11.0 Additional Codes RACHEL-7 Assessment Billing - RACHEL-7 Assessment Tool: RACHEL-7 Assessment 39717 ([id number]) PHQ-9 - 73397 - PHQ-9 Billing: Yes ([id number]) Assessment & Plan Assessment & Plan (1) Anemia: Code(s): D64.9 - Anemia, unspecified Category: Medical Qualifiers: Anemia type: unspecified type Qualified Code(s): D64.9 - Anemia, unspecified (2) Dysmenorrhea: Code(s): N94.6 - Dysmenorrhea, unspecified Category: Medical (3) Family history of ovarian cancer: Comment: paternal aunt and grandmother Code(s): Z80.41 - Family history of malignant neoplasm of ovary Category: Medical (4) Orthostasis: Comment: Advised to hydrate liberally with 3 L of water, increase sodium intake. Slow position changes. If syncope or collapse were to recur seek medical care immediately. Code(s): I95.1 - Orthostatic hypotension Category: Medical (5) Weight gain: Code(s): R63.5 - Abnormal weight gain Category: Medical (6) Nausea: Code(s): R11.0 - Nausea Category: Medical Plan . Orders: Orders US pelvic and transvaginal Today D64.9 - Anemia, unspecified, N94.6 - Dysmenorrhea, unspecified, Z80.41 - Family history of malignant neoplasm of ovary Referrals ACCESS LIAISON Referral N94.6 - Dysmenorrhea, unspecified, Z12.4 - Encounter for screening for malignant neoplasm of cervix Patient Instructions: Patient Instructions - Continue iron supplements as prescribed, ensuring intake at least three days a week. - Monitor and manage constipation potentially induced by iron supplementation through diet. - Attend the scheduled pelvic ultrasound and follow up with the ACCESS LIAISON referral. - Schedule a follow-up appointment in four weeks to review ultrasound results. - Contact the office if experiencing increased symptom severity or new symptoms. - Maintain current level of physical activity and balanced nutrition as discussed.
[2024-09-06 13:12] VITALS: BP 111/58; PULSE 94; RESP 12; O2SAT 97; BMI 27.1
== END 2024-09-06 13:34 | disposition home or self-care (01) ==
PROVIDERS: PCP Nurse Practitioner Family; Visit Provider Nurse Practitioner Family
DX: D64.9 Anemia, unspecified (principal); N94.6 Dysmenorrhea, unspecified; Z80.41 Family history of malignant neoplasm of ovary; I95.1 Orthostatic hypotension; R63.5 Abnormal weight gain; R11.0 Nausea

== ENCOUNTER → 2024-09-06 13:03 | Outpatient (BNVA) | payer OTHER, SELFPAY | PROVIDERS: PCP Nurse Practitioner Family; Visit Provider Nurse Practitioner Family | DX: D50.9 Iron deficiency anemia, unspecified (principal); N94.6 Dysmenorrhea, unspecified; I95.1 Orthostatic hypotension; R63.5 Abnormal weight gain; R11.0 Nausea; Z80.41 Family history of malignant neoplasm of ovary | CPT/HCPCS: 96127 ==

== ENCOUNTER 2024-09-14 13:11 | Outpatient (REF) | payer OTHER, SELFPAY ==
--- NOTE | ~2024-09-14 | US_ITS ---
EXAMINATION: US PELVIS CLINICAL INFORMATION: Family history of malignancy in the ovary. COMPARISON: None available. TECHNIQUE: Ultrasound of the pelvis is performed using both transabdominal and transvaginal transducers along with Doppler. Transvaginal imaging is performed due to inadequate visualization transabdominally. FINDINGS: Submitted for interpretation on September 28, 2024. Uterus: The uterus is anteverted and measures 6 x 2 x 3 cm. The double wall endometrial thickness is 5 mm. The uterus is smooth in contour and has normal myometrial echogenicity. No visible fibroid. Adnexa: Both ovaries are visualized. There is normal color flow to the adnexa. There is no ovarian torsion. There is no pelvic ascites or fluid collection. No gross solid or cystic lesion. Right ovary measures 2 x 1 x 1 cm. Volume is 1 cc Left ovary measures 2 x 2 x 1 cm. Volume is 2 cc US/US pelvic and transvaginal IMPRESSION: Normal exam. Electronically signed by: Kt Chong MD 09/28/2024 10:17 AM WHIT
== END 2024-09-14 13:12 | disposition home or self-care (01) ==
LOC: HO.US 13:11
PROVIDERS: PCP Nurse Practitioner Family; Visit Provider Nurse Practitioner Family
DX: N94.6 Dysmenorrhea, unspecified (principal); D64.9 Anemia, unspecified; Z80.41 Family history of malignant neoplasm of ovary
CPT/HCPCS: 76830; 76856

== ENCOUNTER → 2024-09-14 13:13 | Outpatient (BNV) | payer OTHER, SELFPAY | PROVIDERS: PCP Nurse Practitioner Family; Visit Provider Radiology Diagnostic Radiology | DX: Z80.41 Family history of malignant neoplasm of ovary (principal) | CPT/HCPCS: 76830; 76856 ==

== ENCOUNTER 2024-09-28 12:16 | Outpatient (AMB) | payer OTHER, SELFPAY ==
--- NOTE | 2024-09-28 12:24 | A.OFFPC_ITS ---
Intake Visit Reasons: 4 week telehealth fu Pelvic US results Allergies NSAIDS (Non-Steroidal Anti-Inflamma Allergy (Severe, Verified 09/28/24 12:27) Swelling dipyrone Adverse Reaction (Intermediate, Verified 09/28/24 12:27) Hives Medication List - Last Reconciled 09/28/24 by Kellen Cooper, [facility] drospirenone-ethinyl estradiol 3-0.03 mg (Ayde) 1 tab PO DAILY famotidine (Pepcid) 40 mg PO BEDTIME ferrous sulfate 325 mg PO DAILY sodium chloride 1,000 mg PO BID Tobacco use date assessed: 03/09/24 Dental Screening Dental Screen Date: 03/09/24 HPI HPI Comments History of Present Illness Details History of Present Illness The patient is a 29-year-old female presenting to review US results done to eval abdominal cramping. The abdominal cramping occurs approximately one week prior to her menstrual period. She describes the cramping as severe and sometimes disabling. The condition has been persistent for a few months . There is significant family history of cancer that prompted an ultrasound examination. results reviewed: There was a recent normal ultrasound exam review which showed no malignancy or abnormalities in her uterus or ovaries. Review of Systems - Gastrointestinal: Reports severe abdom inal cramping one week before menstrual period. - Allergic/Immunologic: Reports allergic reaction to NSAIDs. Plan - Abdominal Cramping: Recommend trial us e of acetaminophen 1000 mg daily for 5 to 7 days prior to the onset of menstrual period to manage symptoms. - Anemia,: Order repeat laboratory testi for blood counts in approximately four months to monitor trends. - Routine Follow-Up: Arrange a follow-up visit in approximately four months, before which labs should be completed one week prior. Patient was informed and verbally consented to the use of an ambient scribe for clinic note documentation during this visit. Discussion Notes During our discussion, I reviewed the patient's ultrasound results, highlighting the normal findings and absence of any malignancies or concerning findings in the gynecological anatomy. We addressed the abdominal cramping by suggesting the use of acetaminophen daily one week prior to her menstrual period to manage symptoms, since NSAIDs are contraindicated due to an allergy. I advised the importance of taking acetaminophen daily rather than as needed to help mitigate symptoms. We discussed setting up a repeat laboratory test in four months to monitor blood counts, ensuring trends are assessed over time. We also planned another follow-up appointment to discuss the results of these labs. The patient was informed to contact the office should the acetaminophen not provide relief, and other treatment options would be considered. I advised her to monitor her symptoms and note any changes. She agreed to the proposed management plan. Patient Instructions - Begin taking acetaminophen 1000 mg yvrose ly, consistently for 5?7 days before the onset of menstrual period. - Complete the scheduled repeat blood co unt lab tests one week prior to the next follow-up appointment. - Monitor symptoms and report any lack o f improvement with acetaminophen via the patient portal or call. - Follow up after lab results are availa ble. - For December, bring any additional concer ns to the booked [facility] appointment. RTO 4 MONTHS LABS 1 WEEK BEFORE FU ANEMIA/DYSMENORRHEA/WT GAIN Total time spent caring for the patient today was 15 minutes. This includes time spent before the visit reviewing the chart, time spent during the visit, and time spent after the visit on documentation PFSH Medical History Kidney stones IBS (irritable bowel syndrome) Surgical History Hx of appendectomy Family History Other Diabetes High cholesterol Social History Housing: Apartment Patient Tobacco Use Status: Never used Tobacco e-Cigarette/Vaping Use: Never Used service: No Current occupational status: unemployed Cognitive needs: No Hearing needs: No Vision needs: Yes Questionnaire Thrive Questionnaire Date Thrive assessed: 08/30/24 I am a: Patient What is your living situation today?: I have a steady place to live Within the past 12 months, did the food you bought not last and you didn't have the money to get more?: Never true Within the past 12 months, did you worry whether your food would run out before you got money to buy more?: Never true Do you have trouble paying for medicines?: No Do you have trouble getting transportation to medical appointments?: No Do you have trouble paying your heating and electricity bill?: No Do you have trouble taking care of your child, family member or friend?: No Do you have trouble with day-to-day activities such as bathing, preparing meals, shopping, managing finances, etc.?: No Are you currently unemployed and looking for a job?: Yes Are you interested in more education?: No Please select the resources that you would like help with: None Currently or been in a relationship where the following occur: No concerns reported THRIVE Score: 0 RACHEL-7 AMB Questionnaire RACHEL-7 Date RACHEL - 7 assessed: 09/06/24 Source: Developed by Drs. Alen White, Corine Munoz, Ady Manriquez and colleagues, with an educational darian from [email or web address]. Physical exam (Primary Care) Tobacco/Smoking Status: Tobacco use Status Tobacco use date assessed 03/09/24 09/06/24 13:11 Patient Tobacco Use Status Never used Tobacco 09/06/24 13:11 e-Cigarette/Vaping Use Never Used 09/06/24 13:11 Thrive Assessment: Date of Thrive Assessment Date Thrive assessed 08/30/24 09/21/24 13:07 Currently or been in a relationship where the following occur: No concerns reported Telehealth Telehealth Telehealth Platform: [facility] Location of provider rendering services: practice address Location of patient: address on file Patient Identification confirmed using: Name, : Yes Telehealth method: voice only Patient verbally consented to treatment: Yes Patient verbally consented to billing insurance company: Yes Patient informed of any privacy concerns related to visit: Yes Minutes spent on Phone/Video with Pt.: 8 Results Reviewed Results Reviewed: [place] [id number] Ultrasound Report Signed Patient: Jennifer Cunningham MR#: [id number] : 1995 Acct:[id number] Age/Sex: 29 / F ADM Date: 09/14/24 Loc: HO.US Attending Dr: Kellen VALENCIA Ordering Physician: Kellen Cooper Date of Service: 09/14/24 Procedure(s): US pelvic and transvaginal Accession Number(s): [id number] cc: Kellen Cooper~ EXAMINATION: US PELVIS CLINICAL INFORMATION: Family history of malignancy in the ovary. COMPARISON: None available. TECHNIQUE: Ultrasound of the pelvis is performed using both transabdominal and transvaginal transducers along with Doppler. Transvaginal imaging is performed due to inadequate visualization transabdominally. FINDINGS: Submitted for interpretation on September 28, 2024. Uterus: The uterus is anteverted and measures 6 x 2 x 3 cm. The double wall endometrial thickness is 5 mm. The uterus is smooth in contour and has normal myometrial echogenicity. No visible fibroid. Adnexa: Both ovaries are visualized. There is normal color flow to the adnexa. There is no ovarian torsion. There is no pelvic ascites or fluid collection. No gross solid or cystic lesion. Right ovary measures 2 x 1 x 1 cm. Volume is 1 cc Left ovary measures 2 x 2 x 1 cm. Volume is 2 cc US/US pelvic and transvaginal IMPRESSION: Normal exam. 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 Machine Operator: Coding Level of Care Code Tele Est Pt Level 3 (08755) Complex EM visit Add On G2211 Diagnoses Dysmenorrhea N94.6 Anemia, unspecified type D64.9 Anemia type: unspecified type Family history of ovarian cancer Z80.41 Weight gain R63.5 Assessment & Plan Assessment & Plan (1) Dysmenorrhea: Code(s): N94.6 - Dysmenorrhea, unspecified Category: Medical (2) Anemia: Code(s): D64.9 - Anemia, unspecified Category: Medical Qualifiers: Anemia type: unspecified type Qualified Code(s): D64.9 - Anemia, unspecified (3) Family history of ovarian cancer: Comment: paternal aunt and grandmother Code(s): Z80.41 - Family history of malignant neoplasm of ovary Category: Medical (4) Weight gain: Code(s): R63.5 - Abnormal weight gain Category: Medical Plan . Orders: Orders IRON PROFILE 4 Months D64.9 - Anemia, unspecified, N94.6 - Dysmenorrhea, unspecified, R63.5 - Abnormal weight gain Vitamin B12 and Folate 4 Months D64.9 - Anemia, unspecified, N94.6 - Dysmenorrhea, unspecified, R63.5 - Abnormal weight gain TSH reflex Free T4 4 Months D64.9 - Anemia, unspecified, N94.6 - Dysmenorrhea, unspecified, R63.5 - Abnormal weight gain Complete Blood Count no Diff 4 Months D64.9 - Anemia, unspecified, N94.6 - Dysmenorrhea, unspecified, R63.5 - Abnormal weight gain
== END 2024-09-28 12:36 | disposition home or self-care (01) ==
LOC: HO.HMCFM 12:16
PROVIDERS: PCP Nurse Practitioner Family; Visit Provider Nurse Practitioner Family
DX: N94.6 Dysmenorrhea, unspecified (principal); D64.9 Anemia, unspecified; Z80.41 Family history of malignant neoplasm of ovary; R63.5 Abnormal weight gain

== ENCOUNTER → 2024-09-28 12:16 | Outpatient (BNVA) | payer OTHER, SELFPAY | PROVIDERS: PCP Nurse Practitioner Family; Visit Provider Nurse Practitioner Family ==

== ENCOUNTER 2025-05-25 13:32 | Outpatient (REF) | payer OTHER, SELFPAY ==
[2025-05-25 17:55] LABS: Hematocrit 35.7 % (37.0-47.0); Hemoglobin 12.5 g/dl (12.0-16.0); Mean Corpuscular HGB Conc 35.0 g/dl (31.0-35.0); Mean Corpuscular Hemoglobin 29.6 pg (27.0-33.0); Mean Corpuscular Volume 84.6 fL (80.0-98.0); NRBC Abs Auto 0.000 X10*3/uL (0.0-0.012); NRBC Pct Auto 0.0 /100WBC (0.0-0.2); Platelet Count 286 X10*3/uL (160-400); Red Blood Count 4.22 X10*6/uL (4.20-5.50); White Blood Count 4.8 X10*3/uL (4.8-10.8)
[2025-05-25 18:25] LABS: Iron 67 mcg/dL (30-160); Percent Iron Saturation 20 % (15-50); Total Iron Binding Capacity 331 mcg/dL (228-428); Unsaturated Iron Binding 264 ug/dL
[2025-05-25 18:49] LABS: Folate 6.3 ng/mL (> or = 4.0); Vitamin B12 260 pg/mL (200-900)
== END 2025-05-25 13:33 | disposition home or self-care (01) ==
LOC: HO.WFDLDS 13:32
PROVIDERS: Visit Provider Nurse Practitioner Family
DX: R63.5 Abnormal weight gain (principal); D64.9 Anemia, unspecified; N94.6 Dysmenorrhea, unspecified
CPT/HCPCS: 36415; 82607; 82746; 83540; 84443; 85027

== ENCOUNTER 2025-06-08 12:56 | Outpatient (AMB) | payer OTHER, SELFPAY ==
--- NOTE | 2025-06-08 12:58 | MHC.PC.OV ---
Vital Signs 06/08/25 13:02 06/08/25 13:48 Height 5 ft 1 in Weight 147 lb 4 oz BMI 27.8 BP 110/67 Blood Pressure Location Lt brachial Position Sitting Respiration 12 Pulse 102 H 90 Pulse Source Pulse Oximeter Auscultation Temp 97.0 F Temp Source Oral Pulse Oximetry (%) 99 Oxygen Delivery Method Room Air Intake Visit Reasons: Anemia reschedule from 05/25 Intake Note: Follow up to review labs. Competitive Shopper Required: No Allergies NSAIDS (Non-Steroidal Anti-Inflamma Allergy (Severe, Verified 06/08/25 13:24) Swelling dipyrone Adverse Reaction (Intermediate, Verified 06/08/25 13:24) Hives Medication List - Last Reconciled 06/08/25 by Kellen Cooper, [facility]- drospirenone-ethinyl estradiol 3-0.03 mg (Ayde) 1 tab PO DAILY famotidine (Pepcid) 40 mg PO BEDTIME ferrous sulfate 325 mg PO DAILY sodium chloride 1,000 mg PO BID Tobacco use date assessed: 06/08/25 Dental Screening Dental Screen Date: 06/08/25 Did you have a dental visit in the last 12 months?: Yes Did you have a dental problem in the last 6 months where you did not have access to dental care?: No Was dental information given to patient?: Patient has dentist HPI HPI Comments History of Present Illness Details 29 y/o F with anemia, orthostatic hypotension Fhx: paternal aunt and grandmother Surgery: [facility] referral 07/2025 Tdap 2021 Specialists: BLUEPRINT TRIMMER Optho wears glasses, last exam 2 weeks ago. New Rx. History of Present Illness - The patient is a 29-year-old female presenting for a complete physical examination. - History of iron deficiency anemia with past ferrous sulfate use; iron levels now normalized. Stopped taking daily a few weeks ago as this caused abd bloating and constipation. Did feel tired a few days ago and started to retake twice per week. admits gi sx improved w/ cessation of iron supplement - Orthostatic hypotension managed with increased salt intake; occasional use of sodium chloride tablets. - Chronic GERD managed with Pepcid in the past; was assoc w/ vomiting but no longer. - Dysmenorrhea treated with oral contraceptives. Due for fu with BLUEPRINT TRIMMER - Family history of ovarian cancer in paternal lineage. Review of Systems - General: Denies dizziness or weakness. - Cardiovascular: Denies swelling in legs. - Gastrointestinal: Reports occasional stomach ache and bloating; denies blood in stool or urine. - Musculoskeletal: Cramping related to dysmenorrhea. - Neurological: Denies dizziness, fainting, or headaches. - Eyes: Denies changes in vision. - Ears, Nose, Throat: Denies ringing in ears and nosebleeds. - Genitourinary: Denies blood in urine, except during menses. Physical Exam General: Well developed, well nourished, in no acute distress. Appears stated age. Head: Normocephalic, atraumatic. Eyes: Pupils are equal, round and reactive to light and accommodation. Conjunctivae are clear. Vision grossly normal. Ears: TMs clear AU, EACS WNL Nose: Patent, without discharge.Mouth: There are no ulcers or lesions noted. No inflammation, no post nasal drip, no plaques nor exudates. Neck: Supple, no adenopathy or thyromegaly. Breast: Edu on SBE Lungs: Clear to auscultation bilaterally. No rales, rhonchi or wheeze noted. Good air flow in all condon. Heart: Regular rate and rhythm. No murmurs, click, rubs or gallops are noted. Abdomen: Bowel sounds present in all quadrants. The abdomen is soft, nontender, with no masses or organomegaly noted. No hernias are noted. : Deferred. Reviewed JITENDRA & recommendations for routine BLUEPRINT TRIMMER Musculoskeletal: Joints are nontender, without swelling, redness, or effusions. Range of motion is observed to be normal. Pulses: Peripheral pulses are equal and palpable bilaterally. Extremities: No clubbing, cyanosis nor edema is noted. Neurologic: Gait and station normal. Cranial Nerves 2-12 intact. Motor strength grossly symmetrical and intact. No sensory loss. Balance normal. Skin: No rashes, ulcers, or lesions noted. Turgor is good. Skin color is good. Hair and nails are without abnormalities. Psych: Normal eye contact, affect and mood appropriate, and normal interactions. Patient is alert and appropriate to context. Results - Labs: Normal iron levels; B12 levels low end of normal; thyroid levels normal. 05/2025 Discussion Notes I discussed with the patient the improvement in her iron levels and suggested a transition to a multivitamin with iron to sustain her levels. We talked about the substitution of sodium chloride tablets with dietary salt for her orthostatic hypotension. I advised on managing GERD and discussed possible causes for her bloating. We also covered her family history of ovarian cancer and its implications. I recommended follow-up labs post her CHIEF MEDICAL TECHNOLOGIST appointment in August to check iron and possibly initiate a referral to a roofing foreman if abdominal symptoms persist. She was informed of the availability of Benefiber and Metamucil as fiber supplements. \ Patient was given time to ask questions. All questions were answered to their satisfaction. Assessment and Plan 1. Iron Deficiency Anemia - Start multivitamin with iron. 2. Orthostatic Hypotension - Cont increased dietary salt intake & H20 intake 3. Dysmenorrhea - Continue oral contraceptives. - Fu with OBGYN 4, Abd bloating - check labs, consider GI referral at next visit Patient Instructions - Continue with exercising and healthy dietary habits. - Take the multivitamin with iron as instructed. - Monitor and report any worsening of gastrointestinal symptoms. - Follow up on scheduled CHIEF MEDICAL TECHNOLOGIST appointment. - Use Benefiber as a fiber supplement if constipated. - RTO Aug/Sep w/ repeat labs to fu on anemia and abd bloating labs 1 week before sooner as needed Consent Patient was informed and verbally consented to the use of an ambient scribe for clinic note documentation during this visit. An additional 20 minutes was spent addressing the problem(s) noted at todays visit. This includes time spent before the visit reviewing the chart, time spent during the visit, and time spent after the visit on documentation reviewing laboratory results, diagnostic imaging, medications, performing a medically necessary evaluation, counseling on diagnoses, care coordination, ordering appropriate tests, ordering appropriate medications, review of tests performed by other providers, reporting test results with the patient, communication with other healthcare providers. [facility] Medical History Kidney stones IBS (irritable bowel syndrome) Surgical History Hx of appendectomy Family History Other Diabetes High cholesterol Social History Housing: Apartment Patient Tobacco Use Status: Never used Tobacco e-Cigarette/Vaping Use: Never Used Second Hand Smoke Exposure: No service: No Current occupational status: unemployed Cognitive needs: No Hearing needs: No Vision needs: Yes Questionnaire PHQ-9 Over the last 2 weeks, how often have you been bothered by any of the following problems? 1. Little interest or pleasure in doing things: not at all 2. Feeling down, depressed, or hopeless: not at all 3. Trouble falling or staying asleep, or sleeping too much: not at all 4. Feeling tired or having little energy: not at all 5. Poor appetite or overeating: not at all 6. Feeling bad about yourself - or that you are a failure or have let yourself or your family down: not at all 7. Trouble concentrating on things, such as reading the newspaper or watching television: not at all 8. Moving or speaking so slowly that other people could have noticed. Or the opposite - being so fidgety or restless that you have been moving around a lot more than usual: not at all 9. Thoughts that you would be better off or of hurting yourself in some way: not at all Total score: 0 Depression Screening Interpretation: Negative Depression Screening Done: Yes 84793 - PHQ-9 Billing: Yes Source: Developed by Drs. Alen White, Corine Munoz, Ady Manriquez and colleagues, with an educational darian from [employer]. Thrive Questionnaire Date Thrive assessed: 06/08/25 I am a: Patient What is your living situation today?: I have a steady place to live Within the past 12 months, did the food you bought not last and you didn't have the money to get more?: Never true Within the past 12 months, did you worry whether your food would run out before you got money to buy more?: Never true Do you have trouble paying for medicines?: No Do you have trouble getting transportation to medical appointments?: No Do you have trouble paying your heating and electricity bill?: No Do you have trouble taking care of your child, family member or friend?: No Do you have trouble with day-to-day activities such as bathing, preparing meals, shopping, managing finances, etc.?: No Are you currently unemployed and looking for a job?: No Are you interested in more education?: No Please select the resources that you would like help with: None Currently or been in a relationship where the following occur: No concerns reported THRIVE Score: 0 AUDIT C Alcohol Use Questionnaire (AUDIT-C) 1. How often do you have a drink containing alcohol?: Monthly or less 2. How many drinks containing alcohol do you have on a typical day when you are drinking?: 1 or 2 3. How often do you have six or more drinks on one occasion?: Never Total Score: 1 Score Reviewed/Action Taken: Yes RACHEL-7 AMB Questionnaire RACHEL-7 Date RACHEL - 7 assessed: 06/08/25 Feeling nervous, anxious, or on edge: 0 = Not at all Not being able to stop or control worryin = Not at all Worrying too much about different things: 0 = Not at all Trouble relaxin = Not at all Being so restless that it is hard to sit still: 0 = Not at all Becoming easily annoyed or irritable: 0 = Not at all Feeling afraid as if something awful might happen: 0 = Not at all Total RACHEL-7 score (0-4 normal; 5-9 mild; 10-14 moderate; 15-21 severe): 0 Source: Developed by Drs. Alen White, Corine Munoz, Ady Manriquez and colleagues, with an educational darian from [employer]. RACHEL-7 Assessment Billing RACHEL-7 Assessment Tool: RACHEL-7 Assessment 13562 Physical exam (Primary Care) Vital Signs: Last Vital Signs Temp 97.0 F 06/08/25 13:02 Pulse 102 H 06/08/25 13:02 Resp 12 06/08/25 13:02 BP 110/67 06/08/25 13:02 Pulse Ox 99 06/08/25 13:02 Oxygen Delivery Method Room Air 06/08/25 13:02 BMI result Body Mass Index 27.8 Tobacco/Smoking Status: Tobacco use Status Tobacco use date assessed 06/08/25 06/08/25 13:01 Patient Tobacco Use Status Never used Tobacco 06/08/25 12:58 e-Cigarette/Vaping Use Never Used 06/08/25 12:58 PHQ-9: PHQ-9 Score PHQ-9: Total score 0 06/08/25 13:25 Depression Screening Interpretation: Negative Thrive Assessment: Date of Thrive Assessment Date Thrive assessed 06/08/25 06/08/25 12:58 Currently or been in a relationship where the following occur: No concerns reported Coding Level of Care Code Est Pt Level 3 (28012) Est Pt Prev Care 18-39y(67207) Diagnoses Encounter for general adult medical examination without abnormal findings Z00.00 Orthostasis I95.1 Dysmenorrhea N94.6 Anemia, unspecified type D64.9 Anemia type: unspecified type Family history of ovarian cancer Z80.41 Abdominal bloating R14.0 Additional Codes RACHEL-7 Assessment Billing - RACHEL-7 Assessment Tool: RACHEL-7 Assessment 35760 ([id number]) PHQ-9 - 71208 - PHQ-9 Billing: Yes ([id number]) Assessment & Plan Assessment & Plan (1) Encounter for general adult medical examination without abnormal findings: Onset Date: ~06/08/25 Code(s): Z00.00 - Encounter for general adult medical examination without abnormal findings Category: Medical (2) Orthostasis: Comment: Advised to hydrate liberally with 3 L of water, increase sodium intake. Slow position changes. If syncope or collapse were to recur seek medical care immediately. Code(s): I95.1 - Orthostatic hypotension Category: Medical (3) Dysmenorrhea: Code(s): N94.6 - Dysmenorrhea, unspecified Category: Medical (4) Anemia: Code(s): D64.9 - Anemia, unspecified Category: Medical Qualifiers: Anemia type: unspecified type Qualified Code(s): D64.9 - Anemia, unspecified (5) Family history of ovarian cancer: Comment: paternal aunt and grandmother Code(s): Z80.41 - Family history of malignant neoplasm of ovary Category: Medical (6) Abdominal bloating: Code(s): R14.0 - Abdominal distension (gaseous) Category: Medical Plan . Orders: Orders Complete Blood Count no Diff 08/19/25 D64.9 - Anemia, unspecified, N94.6 - Dysmenorrhea, unspecified, R14.0 - Abdominal distension (gaseous) Comprehensive Met. Panel 08/19/25 D64.9 - Anemia, unspecified, N94.6 - Dysmenorrhea, unspecified, R14.0 - Abdominal distension (gaseous) IRON PROFILE 08/19/25 D64.9 - Anemia, unspecified, N94.6 - Dysmenorrhea, unspecified, R14.0 - Abdominal distension (gaseous) Vitamin D 25-OH Total 08/19/25 D64.9 - Anemia, unspecified, N94.6 - Dysmenorrhea, unspecified, R14.0 - Abdominal distension (gaseous) Celiac Disease Panel 08/19/25 D64.9 - Anemia, unspecified, N94.6 - Dysmenorrhea, unspecified, R14.0 - Abdominal distension (gaseous) Vitamin B12 and Folate 08/19/25 D64.9 - Anemia, unspecified, N94.6 - Dysmenorrhea, unspecified, R14.0 - Abdominal distension (gaseous) Medications: New multivitamin with iron 1 tab PO DAILY 90 tabs 2RF Discontinued ferrous sulfate take daily at noon, adjust for stomach upset. Discontinued Reason: Patient Completed Course 325 mg PO DAILY 90 tabs 1RF famotidine (Pepcid) Discontinued Reason: Patient Completed Course 40 mg PO BEDTIME 90 tabs 1RF sodium chloride take with at least 4 oz of water twice per day Discontinued Reason: Patient Completed Course 1,000 mg PO BID 180 tabs 0RF Patient Instructions: Trial Benefiber, available over the counter. To help with constipation. If insurance doesnt cover MVI with Iron, ok to buy OTC RTO Aug/Sep with labs, sooner as needed. Health screenings for women You should visit your health care provider from time to time, even if you are healthy. The purpose of these visits is to: Screen for medical issues Assess your risk for future medical problems Encourage a healthy lifestyle Update vaccinations and other preventive care services Help you get to know your provider in case of an illness Information Even if you feel fine, you should still see your provider for regular checkups. These visits can help you avoid problems in the future. For example, the only way to find out if you have high blood pressure is to have it checked regularly. High blood sugar and high cholesterol levels also may not have any symptoms in the early stages. A simple blood test can check for these conditions. There are specific times when you should see your provider or receive specific health screenings. The [place] Preventive Services Task Force publishes a list of recommended screenings. Below are screening guidelines for women ages 18 to 39. BLOOD PRESSURE SCREENING Your blood pressure should be checked at least once every 3 to 5 years if: Your blood pressure is in the normal range (top number less than 120 mm Hg and bottom number less than 80 mm Hg) You don't have risk factors for high blood pressure Ask your provider if you need your blood pressure checked more often if: The top number is 120 to 129 mm Hg or the bottom number is 70 to 79 mm Hg You have diabetes, heart disease, kidney problems, are overweight, or have certain other health conditions You have a first-degree relative with high blood pressure You are Black You had high blood pressure during a If the top number is 130 mm Hg or greater or the bottom number is 80 mm Hg or greater, this is considered stage 1 hypertension. Schedule an appointment with your provider to learn how you can reduce your blood pressure. Watch for blood pressure screenings in your area. Ask your provider if you can stop in to have your blood pressure checked. BREAST CANCER SCREENING Experts do not agree about the benefits of breast self-exams in finding breast cancer or saving lives. Talk to your provider about what is best for you. A screening mammogram is not recommended for most women under age 40. Your provider may discuss and recommend mammograms, MRI scans, or ultrasounds if you have an increased risk for breast cancer, such as: A mother or sister who had breast cancer at a young age (most often starting screening earlier than the age the close relative was diagnosed) You carry a high-risk genetic marker CERVICAL CANCER SCREENING Cervical cancer screening should start at age 21 years unless your provider advises otherwise. After the first test: Women ages 21 through 29 should have a Pap test every 3 years. Exoprts do not agree on whether HPV testing is recommended for this age group. Women ages 30 through 65 should be screened with either a Pap test every 3 years or the HPV test every 5 years or both tests every 5 years (called cotesting ). Women who have been treated for precancer (cervical dysplasia) should continue to have Pap tests for 20 years after treatment or until age 65, whichever is longer. If you have had your uterus and cervix removed (total hysterectomy), and you have not been diagnosed with cervical cancer or precancer (high grade cervical neoplasia), you do not need cervical cancer screening. CHOLESTEROL SCREENING Cholesterol screening should begin at: Age 45 for women with no known risk factors for coronary heart disease Age 20 for women with known risk factors for coronary heart disease Repeat cholesterol screening should take place: Every 5 years for women with normal cholesterol levels More often if changes occur in lifestyle (including weight gain and diet) More often if you have diabetes, heart disease, kidney problems, or certain other conditions DIABETES SCREENING You should be screened for diabetes starting at age 35 and then repeated every 3 years if you have no risk factors for diabetes. Screening may need to start earlier and be repeated more often if you have other risk factors for diabetes, such as: You have a first degree relative with diabetes. You are overweight or have obesity. You have high blood pressure, prediabetes, or a history of heart disease. Screening for diabetes should be done if you are planning to become and you are overweight and have other risk factors such as high blood pressure. DENTAL EXAM Go to the dentist once or twice every year for an exam and cleaning. Your dentist will evaluate if you need more frequent visits. EYE EXAM Have an eye exam every 5 to 10 years before age 40. If you have vision problems, have an eye exam every 2 years or more often if recommended by your provider. You should have an eye exam that includes an examination of your retina (back of your eye) at least every year if you have diabetes. IMMUNIZATIONS Commonly needed vaccines include: Flu shot: get one every year. COVID-19 vaccine: ask your provider what is best for you. Tetanus-diphtheria and acellular pertussis (Tdap) vaccine: have one at or after age 19 as one of your tetanus-diphtheria vaccines if you did not receive it as an adolescent. Tetanus-diphtheria: have a booster (or Tdap) every 10 years. Varicella vaccine: receive 2 doses if you never had chickenpox or the varicella vaccine. Hepatitis B vaccine: receive 2, 3, or 4 doses, depending on your exact circumstances. Measles, mumps, and rubella (MMR) vaccine: receive 1 to 2 doses if you are not already immune to MMR. Your provider can tell you if you are immune. Ask your provider about the human papillomavirus (HPV) vaccine if: You have not received the HPV vaccine in the past You have not completed the full vaccine series (you should catch up on this shot) Ask your provider if you should receive other immunizations if you have certain health problems that increase your risk for some diseases such as pneumonia. INFECTIOUS DISEASE SCREENING Women who are sexually active should be screened for chlamydia and gonorrhea up until age 25. Women 25 years and older should be screened for chlamydia and gonorrhea if at high risk. Screening for hepatitis C: All adults ages 18 to 79 should get a one-time test for hepatitis C. people should be screened at every . Screening for human immunodeficiency virus (HIV): All people ages 15 to 65 should get a one-time test for HIV. Depending on your lifestyle and medical history, you may also need to be screened for infections such as syphilis and HIV, as well as other infections. PHYSICAL EXAM All adults should visit their provider from time to time, even if they are healthy. The purpose of these visits is to: Screen for disease Assess your risk of future medical problems Encourage a healthy lifestyle Update your vaccinations and other preventive care services Maintain a relationship with a provider in case of an illness Your height, weight, and BMI should be checked at every exam. During your exam, your provider may ask you about: Depression and anxiety Diet and exercise Alcohol and tobacco use Safety issues, such as using seat belts, smoke detectors, and intimate partner violence Your medicines and risk for interactions SKIN SELF-EXAM Your provider may check your skin for signs of skin cancer, especially if you're at high risk, such as if you: Have had skin cancer before Have close relatives with skin cancer Have a weakened immune system OTHER SCREENING Talk with your provider about colon cancer screening if you have a strong family history of colon cancer or polyps, or if you have had inflammatory bowel disease or polyps yourself. Routine bone density screening of women under 40 is not recommended.
[2025-06-08 13:02] VITALS: BP 110/67; PULSE 102; RESP 12; TEMP 36.1; O2SAT 99; BMI 27.8
[2025-06-08 13:48] VITALS: PULSE 90
== END 2025-06-08 13:44 | disposition home or self-care (01) ==
LOC: HO.HMCFM 12:57
PROVIDERS: PCP Nurse Practitioner Family; Visit Provider Nurse Practitioner Family
DX: Z00.00 Encounter for general adult medical examination without abnormal findings (principal); I95.1 Orthostatic hypotension; N94.6 Dysmenorrhea, unspecified; D64.9 Anemia, unspecified; Z80.41 Family history of malignant neoplasm of ovary; R14.0 Abdominal distension (gaseous)

== ENCOUNTER → 2025-06-08 12:56 | Outpatient (BNVA) | payer OTHER, SELFPAY | PROVIDERS: PCP Nurse Practitioner Family; Visit Provider Nurse Practitioner Family | DX: I95.1 Orthostatic hypotension (principal); D50.9 Iron deficiency anemia, unspecified; N94.6 Dysmenorrhea, unspecified; R14.0 Abdominal distension (gaseous); Z80.41 Family history of malignant neoplasm of ovary | CPT/HCPCS: 96127 ==

== ENCOUNTER 2025-08-18 13:19 | Outpatient (REF) | payer OTHER, SELFPAY ==
[2025-08-19 14:33] LABS: Bacterial Vaginosis PCR NEGATIVE (Negative); Candida Group PCR NOT DETECTED (Not Detect); Candida glab krusei PCR NOT DETECTED (Not Detect); Trichomonas vaginalis PCR NOT DETECTED (Not Detect)
[2025-08-19 15:04] LABS: CT PCR NOT DETECTED (Not Detect.); NG PCR NOT DETECTED (Not Detect.)
== END 2025-08-18 13:20 | disposition home or self-care (01) ==
LOC: HO.LNP 13:19
PROVIDERS: PCP Nurse Practitioner Family; Visit Provider Advanced Practice Midwife
DX: Z01.419 Encounter for gynecological examination (general) (routine) without abnormal findings (principal); N94.6 Dysmenorrhea, unspecified; Z20.2 Contact with and (suspected) exposure to infections with a predominantly sexual mode of transmission; Z30.09 Encounter for other general counseling and advice on contraception
CPT/HCPCS: 81515; 87491; 87591; 87626; 88175

== ENCOUNTER 2025-08-18 13:19 | Outpatient (AMB) | payer OTHER, SELFPAY ==
--- NOTE | 2025-08-18 13:33 | A.OFFVIS_ITS ---
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 She moved from [place] a couple of years ago with her she says she has been on control pills for 7 years she started on Meli in [place] and [facility] same formulation here. Her periods are getting drill bit sharpener but they are still painful and in the last 6 months or so she has also been getting headaches. She intends to [facility] She says her primary care provider gave her a prescription for multivitamins. She also shared that she is considering maybe having a baby in the next couple of years. 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 She lives in [place]. [facility] Medical History Kidney stones IBS (irritable bowel syndrome) Surgical History Hx of appendectomy Family History (Updated 08/18/25 @ 13:40 by Krista Bangura MA) Paternal Grandmother Ovarian cancer Paternal Aunt Ovarian cancer Other Diabetes High cholesterol Social History Housing: Apartment Patient Tobacco Use Status: Never used Tobacco e-Cigarette/Vaping Use: Never Used Second Hand Smoke Exposure: No Patient : No service: No Current occupational status: unemployed Cognitive needs: No Hearing needs: No Vision needs: Yes Female Reproductive History Menstrual Age of Menarche: 11 Duration of menses: 3-5 days Date of last menstrual period: 08/04/25 control method: pills Total pregnancies: 0 History of abnormal pap smear: No Physical Exam Vital Signs: Last Vital Signs BP 114/72 08/18/25 13:45 BMI result Body Mass Index 27.8 Const General: healthy appearing, comfortable, no acute distress, well developed and alert Nutritional Appearance: average body habitus Orientation/consciousness: patient oriented x3 Limitations: no limitations HEENT Head: Yes normocephalic Neck Neck: Yes normal visual inspection Chest Chest palpation & inspection: normal inspection of the chest Breast/axilla inspection: normal inspection of the breasts and normal inspection of the axillae Breast/axilla palpation: normal palpation of the breasts and normal palpation of the axillae Resp Effort & Inspection: normal respiratory effort GI Inspection: Yes normal to inspection, No Abdominal wall edema and No distended Palpation (GI): Soft to palpation and nontender Other: External exam within normal limits there is a small amount of white discharge that could be consistent with yeast but there is no erythema vagina is pink and moist nulliparous cervix pink smooth healthy appearing it was friable with the Pap. Swabs were taken for gonorrhea chlamydia trichomoniasis which I explained to her were STIs. And also for bacterial vaginosis and yeast which I explained are not STIs and if they are positive and she has no symptoms she will not need treatment we will call her for any positives but she can also see the results on the portal for negatives she declined any testing for blood work for STIs she says she had full testing before she moved to this country and it was all negative. General: Yes bladder normal to palpation External Female Exam: normal external appearance and normal appearance of the urethra Speculum Exam - Vagina: normal appearance of the vagina, normal palpation and normal vaginal discharge Speculum Exam - Cervix: normal appearance of the cervix, normal palpation and nontender Bimanual exam- vagina & uterus: normal bimanual exam, normal palpation, uterine size normal, bladder normal to palpation, consistency normal, normal palpation, uterine mobility normal, uterine shape normal, No Cervical tenderness present, non-tender and no cervical motion tenderness Bimanual Exam- Adnexa, other: normal adnexae, no masses, normal and No adnexal tenderness Neuro General: patient oriented x3 Assessment & Plan Assessment & Plan (1) Dysmenorrhea: Code(s): N94.6 - Dysmenorrhea, unspecified Category: Medical (2) Well woman exam with routine gynecological exam: Code(s): Z01.419 - Encounter for gynecological examination (general) (routine) without abnormal findings Category: Medical (3) Cervical cancer screening: Code(s): Z12.4 - Encounter for screening for malignant neoplasm of cervix Category: Medical (4) Screen for sexually transmitted diseases: Code(s): Z11.3 - Encounter for screening for infections with a predominantly sexual mode of transmission Category: Medical (5) control counseling: Comment: [facility] and plans [facility] Pre conception counseling also discussed... Code(s): Z30.09 - Encounter for other general counseling and advice on contraception Category: Medical Plan External exam within normal limits there is a small amount of white discharge that could be consistent with yeast but there is no erythema vagina is pink and moist nulliparous cervix pink smooth healthy appearing it was friable with the Pap. Swabs were taken for gonorrhea chlamydia trichomoniasis which I explained to her were STIs. And also for bacterial vaginosis and yeast which I explained are not STIs and if they are positive and she has no symptoms she will not need treatment we will call her for any positives but she can also see the results on the portal for negatives she declined any testing for blood work for STIs she says she had full testing before she moved to this country and it was all negative. Discussed the pills that she is taking and that is sometimes if people on pills for very long time the periods can get drill bit sharpener but they still experience the pain and dysmenorrhea. She is allergic to ibuprofen with what sounds like verifiable allergic reactions. She is able to take midol with some relief but not too much. Also suggested heating pads that could be of help. Also discussed pre conception counseling she is trying to be as healthy as she can be. I also suggested that she investigate the where she would want to go to have her baby when she does get I explained that we do not have a birthing center here and while we can provide care for somebody who has no issues whatsoever, I do not recommend initiating care here as we do not have comprehensive obstetrical services and it is very important especially with the 1st to get to know the team who would be caring for her from the start and there were very many questions and tests to be done early in the and for continuity of care she would be better served. She is intending to continue on the pills she is on [facility] like [facility] is very economical. She may return here in 1 year or if she is getting [facility] that is acceptable too. Coding Level of Care Code New Pt Prev Care 18-39yr([id number] Diagnoses Dysmenorrhea N94.6 Well woman exam with routine gynecological exam Z01.419 Cervical cancer screening Z12.4 Screen for sexually transmitted diseases Z11.3 control counseling Z30.09
[2025-08-18 13:45] VITALS: BP 114/72; BMI 27.8
== END 2025-08-18 14:49 | disposition home or self-care (01) ==
PROVIDERS: PCP Nurse Practitioner Family; Visit Provider Advanced Practice Midwife
DX: Z01.419 Encounter for gynecological examination (general) (routine) without abnormal findings (principal); N94.6 Dysmenorrhea, unspecified; Z11.3 Encounter for screening for infections with a predominantly sexual mode of transmission; Z30.09 Encounter for other general counseling and advice on contraception
CPT/HCPCS: 99385; 99459

== ENCOUNTER 2025-09-20 12:01 | Outpatient (REF) | payer OTHER, SELFPAY ==
[2025-09-20 14:08] LABS: Hematocrit 35.2 % (37.0-47.0); Hemoglobin 12.1 g/dl (12.0-16.0); Mean Corpuscular HGB Conc 34.4 g/dl (31.0-35.0); Mean Corpuscular Hemoglobin 29.2 pg (27.0-33.0); Mean Corpuscular Volume 84.8 fL (80.0-98.0); NRBC Abs Auto 0.000 X10*3/uL (0.0-0.012); NRBC Pct Auto 0.0 /100WBC (0.0-0.2); Platelet Count 292 X10*3/uL (160-400); Red Blood Count 4.15 X10*6/uL (4.20-5.50); White Blood Count 5.1 X10*3/uL (4.8-10.8)
[2025-09-20 15:02] LABS: Alanine Aminotransferase 22 U/L (0-31); Albumin Level 4.1 g/dL (3.5-5.0); Alkaline Phosphatase 58 U/L (39-117); Anion Gap 12 (12-20); Aspartate Amino Transferase 23 U/L (5-31); Blood Urea Nitrogen 14 mg/dL (9-16); Calcium 9.3 mg/dL (8.4-10.2); Carbon Dioxide 24 mmol/L (22-29); Chloride 107 mmol/L (96-108); Estimated Glomerular Filt Rate > 60; Iron 82 mcg/dL (30-160); Percent Iron Saturation 29 % (15-50); Potassium 4.1 mmol/L (3.3-5.1); Sodium 139 mmol/L (135-145); Total Iron Binding Capacity 283 mcg/dL (228-428); Total Protein 7.6 g/dL (6.5-8.0); Unsaturated Iron Binding 201 ug/dL
[2025-09-20 15:23] LABS: Folate 14.3 ng/mL (> or = 4.0); Vitamin B12 393 pg/mL (200-900)
[2025-09-22 13:53] LABS: Immunoglobulin A 476 mg/dL (47-310)
== END 2025-09-20 12:02 | disposition home or self-care (01) ==
LOC: HO.WFDLDS 12:01
PROVIDERS: Visit Provider Nurse Practitioner Family
DX: R14.0 Abdominal distension (gaseous) (principal); N94.6 Dysmenorrhea, unspecified; D64.9 Anemia, unspecified; Z13.21 Encounter for screening for nutritional disorder
CPT/HCPCS: 36415; 80053; 82306; 82607; 82746; 82784; 83540; 85027; 86364

== ENCOUNTER 2025-09-28 12:30 | Outpatient (AMB) | payer OTHER, SELFPAY ==
--- NOTE | 2025-09-28 12:33 | A.OFFPC_ITS ---
Vital Signs 09/28/25 12:36 09/28/25 13:14 Height 5 ft 1 in Weight 144 lb 8 oz BMI 27.3 BP 100/70 Blood Pressure Location Rt brachial Position Sitting Respiration 14 Pulse 107 H 89 Pulse Source Pulse Oximeter Auscultation Temp 97.5 F Temp Source Temporal Artery Scan Pulse Oximetry (%) 96 100 Oxygen Delivery Method Room Air Room Air Intake Visit Reasons: Aug/Sep wiht labs fu anemia/abd bloating Intake Note: Jennifer presents in the office for a follow up to anemia and abdominal bloating. Denture Processor Required: No Is last menstrual period known: Yes Last menstrual period: 09/28/25 Post menopausal: No Patient : No Allergies NSAIDS (Non-Steroidal Anti-Inflamma Allergy (Severe, Verified 09/28/25 13:05) Swelling dipyrone Adverse Reaction (Intermediate, Verified 09/28/25 13:05) Hives Medication List - Last Reconciled 09/28/25 by Kellen Cooper, [facility]- drospirenone-ethinyl estradiol 3-0.03 mg (Ayde) 1 tab PO DAILY multivitamin with iron 1 tab PO DAILY Tobacco use date assessed: 09/28/25 Dental Screening Dental Screen Date: 09/28/25 Did you have a dental visit in the last 12 months?: Yes Did you have a dental problem in the last 6 months where you did not have access to dental care?: No Was dental information given to patient?: Patient has dentist HPI HPI Comments History of Present Illness Details 30 y/o F with anemia, orthostatic hypote nsion, fhx ovarian cancer Fhx: paternal aunt and grandmother with ovarian ca Surgery: [facility] [place] - [facility] [place]25 Tdap 2021 Flu declined 09/28/25 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 Anemia: - The patient has a history of anemia an d was previously advised to take iron tablets, which she discontinued due to unbearable GI symptoms. At the last OV she started MVI with Iron, taking QD tolerating better than the ferrous sulfate - Labs from September 20 showed an RBC o f 4.15 and hematocrit of 35.2. - Compared to May, her red blood cell s have decreased to 4.15 from a normal level, and her hemoglobin and hematocrit are also trending down but remain within the normal range. - She currently takes a multivitamin wit h iron at night, as taking it during the day caused nausea. - She denies recent episodes of dizzines s or feeling faint. Abdominal Bloating and Pain: - The patient experiences abdominal bloa ting and stomach aches, which started last month. - The pain varies, sometimes presenting as a burning sensation in the upper abdomen and other times as a lower abdominal pain, particularly after eating certain foods. - An CLERK SUPERVISOR evaluation for the abdominal bloating was unremarkable, and a recent Pap smear was normal. - She reports increased worry and parano ia about the burning sensation, considering the possibility of an ulcer, especially during a stressful month when her father was sick. Elevated IgA: - Recent lab work showed an elevated IgA level of 476, with the normal range being up to 310. - A celiac disease panel was negative. Review of Systems - Constitutional: Reports feeling sleepi er. - Gastrointestinal: Reports abdominal bl oating and intermittent abdominal pain, described as a burning sensation in the upper abdomen and lower abdominal pain. Reports nausea when taking iron supplements during the day. Denies issues with bowel movements. - Neurological: Reports a history of hea daches with her period but states she has been fine recently. Denies current dizziness or syncope. Physical Exam General: Well developed, well nourished, in no acute distress. Appears stated age. Head: Normocephalic, atraumatic. Eyes: Pupils are equal, round and reactive to light and accommodation. C onjunctivae are clear. No conjunctival pallor Lungs: Clear to auscultation bilaterally. No rales, rhonchi or wheeze noted. Good air flow in all condon. Heart: Regular rate and rhythm. No murmurs, click, rubs or gallops are noted. Abdomen: Bowel sounds present in all quadrants. The abdomen is soft, but tender over epigastrum and mildly over transverse low abd, though she is on her menses, with no masses or organomegaly noted. No hernias are noted. Musculoskeletal: Joints are nontender, without swelling, redness, or effusions. Pulses: Peripheral pulses are equal and palpable bilaterally. Extremities: No clubbing, cyanosis nor edema is noted. Psych: Mood and affect appropriate. Results - Labs (09/20): - CBC: RBC 4.15, HCT 35.2; otherwise nor mal. - CMP: Normal. - Vitamin D: Normal. - IgA: Elevated at 476 (normal < 310). - Celiac disease panel: Negative. - Pap Smear (09/12): Normal. Medical Decision Making The patient is a 30-year-old female here for follow-up on anemia and abdominal bloating. Her labs show a persistent downward trend in her red blood cell count, hemoglobin, and hematocrit, despite taking a daily multivitamin with iron. She continues to experience abdominal symptoms, including bloating and a burning pain, which raises concern for an underlying gastrointestinal issue such as gastritis or an ulcer, especially given her stress. A recent CLERK SUPERVISOR workup was n egative, making a gynecological etiology less likely. Workup for celiac disease was negative, but her IgA was elevated, which is a non-specific inflammatory marker that could be related to GI inflammation. Given the constellation of symptoms (anemia, abdominal pain) and the elevated IgA, and after ruling out other causes with non-invasive testing, a referral to gastroenterology is warranted for further evaluation. This will likely involve an upper endoscopy to visualize the stomach for ulcers or gastritis and a colonoscopy. This evaluation is important as inflammation of the stomach lining can contribute to anemia. In the interim, to manage her symptoms and anemia, the plan is to increase her iron intake by adding ferrous sulfate twice weekly in addition to her daily multivitamin with iron. She will also start taking famotidine daily to help with the burning stomach pain and potential gastritis. Follow-up is scheduled in 4 months with labs to recheck her anemia, but this can be canceled if she is seen by GI sooner. She will then be due for CPE in May 2026 Plan 1. Anemia - The patient's blood counts are trendin g down despite taking a multivitamin with iron. - She will continue her daily multivitam in with iron and add a separate ferrous sulfate supplement twice a week to boost her iron levels. - A CBC, iron, and ferritin panel will b e repeated in four months to monitor her status. 2. Abdominal Bloating And Pain - A referral will be placed to a gastroe nterologist at [facility] to evaluate the persistent abdominal bloating, pain, gastritis, and elevated IgA. - This evaluation will likely include an upper endoscopy and colonoscopy to investigate for ulcers or other gastrointestinal pathology. - The patient has agreed to start taking famotidine daily to help manage the burning stomach pain until she can be seen by the specialist. 3. Follow-Up - The patient will schedule two appointm ents: a four-month follow-up with labs for anemia and her annual physical in May. - If the gastroenterology appointment oc curs within the next four months, she is instructed to cancel the four-month follow-up visit and keep the annual physical. Patient Instructions - Continue taking your multivitamin with iron every day at night. - In addition to the multivitamin, start taking an extra iron pill (ferrous sulfate) two times per week. - Begin taking famotidine (the medicatio n for nausea) every day to help with the burning feeling in your stomach. - A referral has been sent to a stomach specialist (seamer). They will call you to schedule an appointment for further tests, which may include a colonoscopy and a camera test down your throat (endoscopy). - The preparation for the colonoscopy is the hardest part, but the procedure itself is painless. - Please schedule two appointments befor e you leave: one in four months for a follow-up on your anemia with blood work, and your yearly physical in May. - If you see the stomach specialist befo re the four-month follow-up, you can cancel that appointment and just keep your yearly physical appointment. - Please reach out if you need anything before your next appointment. Consent Patient was informed and verbally consented to the use of an ambient scribe for clinic note documentation during this visit. Total time spent caring for the patient today was 30 minutes. This includes time spent before the visit reviewing the chart, time spent during the visit, and time spent after the visit on documentation, reviewing laboratory results, diagnostic imaging, medications, performing a medically necessary evaluation, counseling on diagnoses, care coordination, ordering appropriate tests, ordering appropriate medications, review of tests performed by other providers, reporting test results with the patient, communication with other healthcare providers. [facility] Medical History Kidney stones IBS (irritable bowel syndrome) Surgical History Hx of appendectomy Family History Paternal Grandmother Ovarian cancer Paternal Aunt Ovarian cancer Other Diabetes High cholesterol Social History (Updated 09/28/25 @ 12:36 by Princess Foster CMA) Housing: Apartment Alcohol intake: current Patient Tobacco Use Status: Never used Tobacco e-Cigarette/Vaping Use: Never Used Second Hand Smoke Exposure: No Substance Use Type: Marijuana service: No Current occupational status: unemployed Cognitive needs: No Hearing needs: No Vision needs: Yes Female Reproductive History Menstrual Age of Menarche: 11 Date of last menstrual period: 09/28/25 Questionnaire Thrive Questionnaire Date Thrive assessed: 06/01/25 I am a: Patient What is your living situation today?: I have a steady place to live Within the past 12 months, did the food you bought not last and you didn't have the money to get more?: Never true Within the past 12 months, did you worry whether your food would run out before you got money to buy more?: Never true Do you have trouble paying for medicines?: No Do you have trouble getting transportation to medical appointments?: No Do you have trouble paying your heating and electricity bill?: No Do you have trouble taking care of your child, family member or friend?: No Do you have trouble with day-to-day activities such as bathing, preparing meals, shopping, managing finances, etc.?: No Are you currently unemployed and looking for a job?: No Are you interested in more education?: No Please select the resources that you would like help with: None Currently or been in a relationship where the following occur: No concerns reported THRIVE Score: 0 RACHEL-7 AMB Questionnaire RACHEL-7 Date RACHEL - 7 assessed: 06/08/25 Source: Developed by Drs. Alen White, Corine Munoz, Ady Manriquez and colleagues, with an educational darian from [employer]. Physical exam (Primary Care) Vital Signs: Last Vital Signs Temp 97.5 F 09/28/25 12:36 Pulse 89 09/28/25 13:14 Resp 14 09/28/25 12:36 BP 100/70 09/28/25 12:36 Pulse Ox 100 09/28/25 13:14 Oxygen Delivery Method Room Air 09/28/25 13:14 BMI result Body Mass Index 27.3 Tobacco/Smoking Status: Tobacco use Status Tobacco use date assessed 09/28/25 09/28/25 12:38 Patient Tobacco Use Status Never used Tobacco 09/28/25 12:36 e-Cigarette/Vaping Use Never Used 09/28/25 12:36 Thrive Assessment: Date of Thrive Assessment Date Thrive assessed 06/01/25 09/28/25 12:34 Currently or been in a relationship where the following occur: No concerns reported Coding Level of Care Code Est Pt Level 4 (92991) Add On Problem Visit Only Diagnoses Anemia, unspecified type D64.9 Anemia type: unspecified type Nausea R11.0 Abdominal bloating R14.0 Gastritis K29.70 IgA gammopathy D47.2 Assessment & Plan Assessment & Plan (1) Anemia: Code(s): D64.9 - Anemia, unspecified Category: Medical Qualifiers: Anemia type: unspecified type Qualified Code(s): D64.9 - Anemia, unspecified (2) Nausea: Code(s): R11.0 - Nausea Category: Medical (3) Abdominal bloating: Code(s): R14.0 - Abdominal distension (gaseous) Category: Medical (4) Gastritis: Code(s): K29.70 - Gastritis, unspecified, without bleeding Category: Medical (5) IgA gammopathy: Code(s): D47.2 - Monoclonal gammopathy Category: Medical Plan . Orders: Orders IRON PROFILE 4 Months D64.9 - Anemia, unspecified Ferritin 4 Months D64.9 - Anemia, unspecified Complete Blood Count no Diff 4 Months D64.9 - Anemia, unspecified Referrals Gastroenterology Referral D47.2 - Monoclonal gammopathy, D64.9 - Anemia, unspecified, K29.70 - Gastritis, unspecified, without bleeding, R11.0 - Nausea, R14.0 - Abdominal distension (gaseous) Medications: Refilled ferrous sulfate take daily at noon, adjust for stomach upset. 325 mg PO DAILY 90 tabs 1RF famotidine (Pepcid) 40 mg PO BEDTIME 90 tabs 1RF
[2025-09-28 12:36] VITALS: BP 100/70; PULSE 107; RESP 14; TEMP 36.4; O2SAT 96; BMI 27.3
[2025-09-28 13:14] VITALS: PULSE 89; O2SAT 100
== END 2025-09-28 13:19 | disposition home or self-care (01) ==
LOC: HO.HMCFM 12:31
PROVIDERS: PCP Nurse Practitioner Family; Visit Provider Nurse Practitioner Family
DX: D64.9 Anemia, unspecified (principal); R11.0 Nausea; R14.0 Abdominal distension (gaseous); K29.70 Gastritis, unspecified, without bleeding; D47.2 Monoclonal gammopathy